=== PATIENT | female | born 1995 | race Caucasian/White ===

== ENCOUNTER → 2016-09-17 | Outpatient (CLI) | payer OTHER ==
[~2016-09-17] MED LIST: CLOMID50 MG; VYVANSE20 MG PO; [UNRECOGNIZED DRUG - OTHER] PO
== END ==
LOC: COL.RAD 12:35
DX: N97.9 Female infertility, unspecified (principal); Z53.09 Procedure and treatment not carried out because of other contraindication

== ENCOUNTER → 2016-10-08 | Outpatient (CLI) | payer OTHER | LOC: COL.RAD 09:25 | DX: N97.8 Female infertility of other origin (principal) | CPT/HCPCS: Q9967 ==

== ENCOUNTER 2016-10-22 11:17 | Emergency (ER) | payer OTHER ==
[~2016-10-22] VITALS: Ht 149.9 cm; Wt 54.5 kg
[2016-10-22 11:25] VITALS: TEMP 97.9
[2016-10-22] MEDS ORDERED: CLOMID50 MG (11:44)
[2016-10-22] MEDS ORDERED: VYVANSE20 MG PO (11:44)
[2016-10-22] MEDS ORDERED: [UNRECOGNIZED DRUG - OTHER] PO (11:45)
[2016-10-22 13:04] VITALS: BP 128/78; PULSE 89
== END 2016-10-22 13:05 | disposition home or self-care (01) ==
LOC: COL.ER 11:17
DX: M79.661 Pain in right lower leg (principal); Z86.718 Personal history of other venous thrombosis and embolism; J45.909 Unspecified asthma, uncomplicated

== ENCOUNTER 2017-06-04 11:35 | Emergency (ER) | payer OTHER ==
[~2017-06-04] VITALS: Ht 149.9 cm; Wt 60.0 kg
[2017-06-04 11:37] VITALS: BP 128/58; PULSE 91; TEMP 98.6
[2017-06-04] MEDS ORDERED: ZOLOFT 50MG50 MG PO (11:40)
[2017-06-04] MEDS ORDERED: LOVENOX 3030 MG/0.3 SQ (11:40)
[2017-06-04 12:15] LABS: BASO % 0.4 % (0.0-2.0); EOS # 0.1 (0.0-0.7); EOS % 0.6 % (0-4.0); GRAN # 6.9 (1.4-6.5); GRAN % 73.5 % (42.2-75.2); HEMATOCRIT 37.9 % (37.0-47.0); LYMPH # 1.8 (1.2-3.4); LYMPH % 18.9 % (20.0-51.0); MEAN CELL VOLUME 86 fl (80.0-100.0); MEAN CORPUSCULAR HEMOGLOBIN 30 pg (27.0-31.0); MEAN CORPUSCULAR HGB CONC 34 g/dl (33.0-37.0); MEAN PLATELET VOLUME 8.7 fl (7.4-10.4); MONO # 0.6 (0.1-0.6); PLATELET COUNT 330 K/mm3 (130-400); WHITE BLOOD COUNT 9.4 K/mm3 (4.8-10.8)
[2017-06-04 12:45] LABS: CALCIUM 9.4 mg/dL (8.4-10.2); CREATININE, serum 0.5 mg/dL (0.52-1.25); POTASSIUM 3.4 mmol/L (3.4-5.0)
[2017-06-04] MEDS ORDERED: PEPCID 20MG TAB20 MG PO (14:25)
== END 2017-06-04 15:05 | disposition home or self-care (01) ==
LOC: COL.ER 11:35
PROVIDERS: Emergency Medicine
DX: O20.0 Threatened abortion (principal); O99.612 Diseases of the digestive system complicating pregnancy, second trimester; K21.9 Gastro-esophageal reflux disease without esophagitis; O99.512 Diseases of the respiratory system complicating pregnancy, second trimester; R06.02 Shortness of breath; Z3A.16 16 weeks gestation of pregnancy

== ENCOUNTER 2017-10-19 09:49 | Outpatient (CLI) | payer OTHER ==
[~2017-10-19] VITALS: Ht 157.5 cm; Wt 72.7 kg
[~2017-10-19 09:49] MED LIST changes: +LOVENOX 3030 MG/0.3 SQ; +PEPCID 20MG TAB20 MG PO; +ZANTAC 150MG T150 MG PO; +ZOLOFT 50MG50 MG PO
[2017-10-19] MEDS ORDERED: ZOLOFT 100MG100 MG PO (10:08)
[2017-10-19 10:30] VITALS: BP 139/67; PULSE 126; TEMP 97.8
[2017-10-19 11:30] VITALS: BP 127/69; PULSE 98
[2017-10-19 12:00] VITALS: BP 119/61; PULSE 96
== END 2017-10-19 12:00 | disposition home or self-care (01) ==
LOC: LDRO 09:49
DX: O21.2 Late vomiting of pregnancy (principal); Z3A.34 34 weeks gestation of pregnancy
CPT/HCPCS: J2405; J2550; J7120

== ENCOUNTER 2017-11-07 00:15 | Inpatient (IN) | payer OTHER ==
[2017-11-07] VITALS (73 sets, daily range): BP systolic 85–154; BP diastolic 44–103; PULSE 78–130; TEMP 97.7–99.6
[~2017-11-07] VITALS: Ht 152.4 cm; Wt 76.4 kg
[~2017-11-07 00:15] MED LIST changes: +ZOLOFT 100MG100 MG PO
[2017-11-07] MEDS ORDERED: VISTARIL 2525 MG/CAP PO (01:00)
[2017-11-07] MEDS ORDERED: PROTONIX 40MG T40 MG PO (01:00)
[2017-11-07] MEDS ORDERED: ZITHROMAX Z PA250 MG PO (01:01)
[2017-11-07] MEDS ORDERED: HEPARIN SOD5000 U/ML SQ (01:05)
[2017-11-07 01:59] LABS: BASO # 0.1 (0.0-0.2); BASO % 0.4 % (0.0-2.0); EOS # 0.2 (0.0-0.7); EOS % 1.4 % (0-4.0); GRAN # 7.9 (1.4-6.5); GRAN % 65.4 % (42.2-75.2); HEMOGLOBIN 11.9 g/dl (12.5-16.0); LYMPH # 2.9 (1.2-3.4); MEAN CELL VOLUME 83 fl (80.0-100.0); MEAN CORPUSCULAR HEMOGLOBIN 28 pg (27.0-31.0); MEAN CORPUSCULAR HGB CONC 34 g/dl (33.0-37.0); MEAN PLATELET VOLUME 10.4 fl (7.4-10.4); MONO # 0.9 (0.1-0.6); MONO % 7.7 % (1.7-9.3); PLATELET COUNT 255 K/mm3 (130-400); RED BLOOD COUNT 4.22 M/mm3 (4.10-5.30); REDCELL DISTRIBUTION WIDTH-CV 13.6 % (11.5-14.5)
[2017-11-07 02:44] LABS: HEMATOCRIT 35.1 % (37.0-47.0)
[2017-11-08 04:10] VITALS: BP 108/58; PULSE 85; TEMP 98
[2017-11-08] MEDS ORDERED: MOTRIN 800800 MG/TAB PO (08:17)
[2017-11-08] MEDS ORDERED: PERCOCET 325 MG1 TA2 PO (08:17)
[2017-11-08 08:45] VITALS: BP 93/47; PULSE 79; TEMP 97.6
[2017-11-08 12:15] VITALS: BP 114/67; PULSE 95; TEMP 97.2
[2017-11-08 16:30] VITALS: BP 114/86; PULSE 88; TEMP 97.8
[2017-11-08 20:00] VITALS: BP 110/70; PULSE 94; TEMP 97.6
[2017-11-09 00:01] VITALS: BP 114/56; PULSE 90; TEMP 97.6
[2017-11-09 08:00] VITALS: BP 123/82; PULSE 85; TEMP 98.5
[2017-11-09 13:00] VITALS: BP 113/72; PULSE 96; TEMP 98.6
[2017-11-09 16:00] VITALS: BP 108/64; PULSE 80; TEMP 98
[2017-11-09 19:45] VITALS: BP 120/69; PULSE 90; TEMP 98.3
[2017-11-09 23:30] VITALS: BP 111/54; PULSE 95; TEMP 98.4
[2017-11-10 03:45] VITALS: BP 129/73; PULSE 95; TEMP 98
[2017-11-10 08:19] VITALS: BP 128/88; PULSE 90
== END 2017-11-10 16:10 | disposition home or self-care (01) | DRG 766 ==
LOC: LDRO 00:15 → OB 00:49 → LDR 00:49 → OB 19:50
PROVIDERS: Obstetrics & Gynecology
PROC: 10D00Z1 Extraction of Products of Conception, Low, Open Approach (ICD-10-PCS; principal; 2017-11-07)
DX: O32.4XX0 Maternal care for high head at term, not applicable or unspecified (principal); Z3A.37 37 weeks gestation of pregnancy; Z37.0 Single live birth; O76 Abnormality in fetal heart rate and rhythm complicating labor and delivery; G97.1 Other reaction to spinal and lumbar puncture
CPT/HCPCS: J0690; J1200; J1885; J2175; J2270; J2370; J2400; J2405; J2590; J2704; J2795; J3010; J7120

== ENCOUNTER 2017-11-12 12:01 | Outpatient (CLI) | payer OTHER ==
[~2017-11-12 12:01] MED LIST changes: +HEPARIN SOD5000 U/ML SQ; +MOTRIN 800800 MG/TAB PO; +PERCOCET 325 MG1 TA2 PO; +PROTONIX 40MG T40 MG PO; +VISTARIL 2525 MG/CAP PO; +ZITHROMAX Z PA250 MG PO
== END 2017-11-12 13:05 | disposition home or self-care (01) ==
LOC: LDRO 12:01
DX: O89.4 Spinal and epidural anesthesia-induced headache during the puerperium (principal)